=== PATIENT | male | born 1965 | race Caucasian/White ===

== ENCOUNTER → 2020-10-11 | Outpatient (CLI) | payer OTHER ==
--- NOTE | 2020-10-12 21:20 | CT ---
EXAMINATION TYPE: CT sinus wo con DATE OF EXAM: 10/11/2020 COMPARISON: None HISTORY: Difficulty breathing while sleeping, pressure drainage CT DLP: 731.60 mGycm CONTRAST: 0 mL of Isovue 300 The paranasal sinuses are examined in the axial plane at 2 mm thick sections. Reconstructed images i n the coronal plane were obtained. There is dental amalgam scatter artifact Maxillary retention cysts are present. The ethmoid air cells are clear. The sphenoid sinuses are cl ear. The frontal sinuses are clear. The septum is evaluated. There is septal deviation to the left. 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 The ostiomeatal units are patent. IMPRESSIONS: 1. Bilateral maxillary retention cysts. 2. Bilateral crystal bullosa. 3. Left septal deviation
== END | disposition home or self-care (01) ==
LOC: RADCTMAIN 16:07
PROVIDERS: ATTEND Otolaryngology Otolaryngic Allergy
DX: J34.2 Deviated nasal septum (principal); J34.1 Cyst and mucocele of nose and nasal sinus
CPT/HCPCS: 70486